=== PATIENT | male | born 2000 | race Caucasian/White ===

== ENCOUNTER 2020-10-09 11:37 | Emergency (ER) | payer SELFPAY ==
[2020-10-09 12:30] LABS: Urine Blood Negative (Negative); Urine Glucose Negative (Negative); Urine Protein Negative (Negative); Urine Specific Gravity <=1.005 (1.005-1.030); Urine pH 5.5 (5.0-7.0)
[2020-10-09 17:52] LABS: Absolute Lymphocytes (CBC) 2.5 K/uL (0.7-4.9); Basophils % 0.6 % (0-1.3); Hematocrit 46.5 % (39.6-49.0); Lymphocytes % 30.2 % (15.3-44.8); RBC Red Blood Cell Count 5.47 M/uL (4.33-5.43)
[2020-10-09 18:04] LABS: ALT/SGPT 27 U/L (12-78); AST/SGOT 13 U/L (15-37); Albumin 4.9 g/dL (3.4-5.0); Alkaline Phosphatase 115 U/L (45-117); BUN Blood Urea Nitrogen 11 mg/dL (7-18); Bicarbonate 29 mmol/L (21-32); Bilirubin Direct < 0.1 mg/dL (0-0.2); Bilirubin Total 0.4 mg/dL (0.2-1.0); Glucose Level 82 mg/dL (74-106); Lipase 97 U/L (73-393); Potassium 3.6 mmol/L (3.5-5.1); Protein, Total 8.8 g/dL (6.4-8.2); Sodium Level 142 mmol/L (136-145)
--- NOTE | 2020-10-09 18:54 | RAD REPORT ---
EXAM DESCRIPTION: CTAbdomen Pelvis W Contrast - 10/09/2020 6:46 pm CLINICAL HISTORY: Abdominal pain. lower abdominal pain COMPARISON: No comparisons TECHNIQUE: Biphasic CT imaging of the abdomen and pelvis was performed with 100 ml non-ionic IV cont rast. All CT scans are performed using dose optimization technique as appropriate and may include automated exposure control or mA/KV adjustment according to patient size. FINDINGS: The lung bases are clear. The liver, spleen, pancreas, adrenal glands and kidneys are within normal limits. No bowel obstruction, free air, free fluid or abscess. The appendix is normal. No evidence of signi ficant lymphadenopathy. No suspicious bony findings. IMPRESSION: No acute intra-abdominal or pelvic finding.
--- NOTE | 2020-10-09 19:28 | EDPHYS ---
Physician Documentation [facility] Name: Huey Bonilla Age: 20 yrs Sex: Male : 2000 Arrival Date: 10/09/2020 Time: 11:40 Bed 2 Private MD: ED Physician Yvette Saravia HPI: 10/09 19:33 This 20 yrs old Male presents to ER via Ambulatory with complaints of Groin jmm Pain, Abdominal Pain. 19:33 The patient presents with abdominal pain. Onset: The symptoms/episode began/occurred jmm gradually, today. The symptoms radiate to pelvis. The symptoms are described as achy. This is a 20-year-old male with no chronic medical condition presents emerged part with complaints of lower abdominal/pelvic pain which radiates to his penis. Denies scrotal pain, denies dysuria, denies discharge. Patient is not concerned for STI. Denies fever, vomiting, diarrhea.. Historical: - Allergies: 12:02 No Known Allergies; ss - Home Meds: 12:02 None [Active]; ss - PMHx: 12:02 None; ss - PSHx: 12:02 None; ss - Immunization history:: Client reports having NOT received the Covid vaccine. - Social history:: Smoking status: Patient denies any tobacco usage or history of. ROS: 19:33 Constitutional: Negative for fever, chills, and weight loss, Cardiovascular: Negative jmm for chest pain, palpitations, and edema, Respiratory: Negative for shortness of breath, cough, wheezing, and pleuritic chest pain. 19:33 Abdomen/GI: Positive for abdominal pain. 19:33 All other systems are negative. Exam: 19:33 Constitutional: This is a well developed, well nourished patient who is awake, alert, jmm and in no acute distress. Head/Face: atraumatic. Eyes: EOMI, no conjunctival erythema appreciated ENT: Moist Mucus Membranes Neck: Trachea midline, Supple Chest/axilla: Normal chest wall appearance and motion. Cardiovascular: Regular rate and rhythm. No edema appreciated Respiratory: Normal respirations, no respiratory distress appreciated 19:33 Back: Normal ROM Skin: General appearance color normal MS/ Extremity: Moves all extremities, no obvious deformities appreciated, no edema noted to the lower extremities Neuro: Awake and alert, normal gait Psych: Behavior is normal, Mood is normal, Patient is cooperative and pleasant 19:33 Abdomen/GI: Inspection: abdomen appears normal, Bowel sounds: normal, Palpation: soft, nontender, in all quadrants. Vital Signs: 12:03 BP 154 / 79; Pulse 77; Resp 14; Temp 98.7(TE); Pulse Ox 100% on R/A; Weight 71.67 kg; ss Height 5 ft. 11 in. (180.34 cm); Pain 0/10; 19:09 BP 155 / 79; Pulse 71; Resp 15; Pulse Ox 98% ; jl7 12:03 Body Mass Index 22.04 (71.67 kg, 180.34 cm) ss MDM: 17:51 Patient medically screened. [facility] 19:26 Data reviewed: vital signs, nurses notes. Counseling: I had a detailed discussion with nataliia the patient and/or guardian regarding: the historical points, exam findings, and any diagnostic results supporting the discharge/admit diagnosis, lab results, radiology results, the need for outpatient follow up, to return to the emergency department if symptoms worsen or persist or if there are any questions or concerns that arise at home. ED course: Patient is alert nontoxic in appearance in the ED. Patient was given early appendicitis return precautions. Patient understood and agrees plan of care.. 10/09 12:30 Order name: Urine Dipstick-Ancillary; Complete Time: 16:18 [facility] 10/09 16:27 Order name: Basic Metabolic Panel; Complete Time: 18:07 [facility] 10/09 16:27 Order name: CBC with Diff; Complete Time: 18:07 [facility] 10/09 16:27 Order name: Hepatic Function; Complete Time: 18:07 [facility] 10/09 16:27 Order name: Lipase; Complete Time: 18:07 [facility] 10/09 17:51 Order name: CT Abd/Pelvis - IV Contrast Only; Complete Time: 18:57 [facility] 10/09 16:27 Order name: IV Saline Lock; Complete Time: 18:03 [facility] 10/09 16:27 Order name: Labs collected and sent; Complete Time: 18:03 [facility] Administered Medications: No medications were administered Disposition: 10/10 18:52 Co-signature as Attending Physician, Yvette Saravia I agree with the assessment and plan sp3 of care. Disposition Summary: 08/16/21 19:27 Discharge Ordered Location: Home jm Condition: Stable jmm Diagnosis - Lower abdominal pain, unspecified jmm Followup: jmm - With: Private Physician - When: 2 - 3 days - Reason: Recheck today's complaints, Continuance of care, Re-evaluation by your physician Discharge Instructions: - Discharge Summary Sheet jmm - Abdominal Pain, Adult jmm Forms: - Medication Reconciliation Form jmm - Thank You Letter jmm - Antibiotic Education jmm - Work release form jmm - Prescription Opioid Use jmm Signatures: Dispatcher [employer] Chilo Valiente PA PA jmm Smirch, Shelby, RN RN ss Yvette Saravia sp3
--- NOTE | 2020-10-09 19:28 | ER ---
Nurse's Notes [facility] Name: Huey Bonilla Age: 20 yrs Sex: Male : 2000 Arrival Date: 10/09/2020 Time: 11:40 Bed 2 Private MD: Diagnosis: Lower abdominal pain, unspecified Presentation: 10/09 12:03 Chief complaint: Patient states: suprapubic discomfort that began 2 hours ago seems to ss radiates down shaft of penis. Feels sensation to have to void constantly.. Coronavirus screen: Client denies travel out of the [place] in the last 14 days. Ebola Screen: Patient denies exposure to infectious person. Patient denies travel to an Ebola-affected area in the 21 days before illness onset. Initial Sepsis Screen: Does the patient meet any 2 criteria? No. Patient's initial sepsis screen is negative. Does the patient have a suspected source of infection? No. Patient's initial sepsis screen is negative. Risk Assessment: Do you want to hurt yourself or someone else? Patient reports no desire to harm self or others. Onset of symptoms was October 09, 2020. 12:03 Method Of Arrival: Ambulatory ss 12:03 Acuity: MARINA 3 ss Historical: - Allergies: 12:02 No Known Allergies; ss - Home Meds: 12:02 None [Active]; ss - PMHx: 12:02 None; ss - PSHx: 12:02 None; ss - Immunization history:: Client reports having NOT received the Covid vaccine. - Social history:: Smoking status: Patient denies any tobacco usage or history of. Screenin:09 Abuse screen: Denies threats or abuse. Denies injuries from another. Nutritional jl7 screening: No deficits noted. Tuberculosis screening: No symptoms or risk factors identified. Fall Risk IV access (20 points). Assessment: 17:45 General: Appears in no apparent distress. uncomfortable, Behavior is calm, cooperative, jl7 appropriate for age. Pain: Complains of pain in right lower quadrant and groin Pain currently is 0 out of 10 on a pain scale. Quality of pain is described as Pain began X7 hrs Is intermittent. Neuro: Level of Consciousness is awake, alert, obeys commands, Oriented to person, place, time, situation. Cardiovascular: Patient's skin is warm and dry. Respiratory: Airway is patent Respiratory effort is even, unlabored, Respiratory pattern is regular, symmetrical. GI: : Denies burning with urination. Derm: Skin is pink, warm \T\ dry. 19:30 Reassessment: Patient is alert, oriented x 3, equal unlabored respirations, skin aa5 warm/dry/pink. Vital Signs: 12:03 BP 154 / 79; Pulse 77; Resp 14; Temp 98.7(TE); Pulse Ox 100% on R/A; Weight 71.67 kg; Height 5 ft. 11 in. (180.34 cm); Pain 0/10; 19:09 BP 155 / 79; Pulse 71; Resp 15; Pulse Ox 98% ; jl7 12:03 Body Mass Index 22.04 (71.67 kg, 180.34 cm) ED Course: 11:40 Patient arrived in ED. ds1 12:02 Arm band placed on right wrist. 12:05 Triage completed. 14:43 Chilo Wilson PA is PHCP. [facility] 14:44 Yvette Saravia is Attending Physician. [facility] 16:45 Initial lab(s) drawn, by ED staff, sent to lab. Inserted saline lock: 20 gauge in left 7 antecubital area, using aseptic technique. Blood collected. 18:03 Luis Pink RN is Primary Nurse. [facility] er 18:46 CT Abd/Pelvis - IV Contrast Only In Process Unspecified. EDMS 19:09 Patient has correct armband on for positive identification. Pulse ox on. NIBP on. 7 19:30 Primary Nurse role handed off by Luis Pink, JALEN mw2 19:30 No provider procedures requiring assistance completed. IV discontinued, intact, aa5 bleeding controlled, No redness/swelling at site. Pressure dressing applied. Administered Medications: No medications were administered Outcome: 19:27 Discharge ordered by . nataliia 19:31 Discharged to home ambulatory. aa5 19:31 Condition: stable 19:31 Discharge instructions given to patient, Instructed on discharge instructions, follow up and referral plans. Demonstrated understanding of instructions, follow-up care. 19:31 Patient left the ED. aa5 Signatures: Dispatcher [employer] EDND Chilo Wilson PA PA [facility] Daisy Raphael ds1 Lou Ty RN RN aa5 Chhaya Zaman RN RN ss Luis Pink RN RN jl7 Radha Scruggs 2 Corrections: (The following items were deleted from the chart) 19:09 17:45 BP 155 / 79; Pulse 71bpm; Resp 15bpm; Pulse Ox 98%; jl7 jl7
[2020-10-09 19:51] VITALS: TEMP 98.7
[2020-10-09 19:52] VITALS: BP 155/79; O2SAT 98
== END 2020-10-09 19:31 | disposition home or self-care (01) ==
LOC: ER 11:37
DX: R10.30 Lower abdominal pain, unspecified (principal)
CPT/HCPCS: 36415; 74177; 80048; 80076; 81003; 83690; 85025; 99284; Q9967